=== PATIENT | female | born 1990 | race Caucasian/White ===

== ENCOUNTER 2017-06-26 08:44 | Observation (INO) | payer OTHER ==
[~2017-06-26 08:44] MED LIST: Buffered Lidocaine 0.9% SYRIN* 5 ML/SYR SYRINGE INTRADERM ONE; Famotidine IV* 10 MG/ML 2 ML (20 mg) IV ONE; Metoclopramide TAB* 10 MG ONE; Metoclopramide TAB* 10 MG PO ONE; ceFAZolin 2 GM PREMIX (*) 2 GM/50 ML BAG IVPB ONE
[2017-06-26] MEDS ORDERED: Buffered Lidocaine 0.9% SYRIN* 5 ML/SYR SYRINGE ONE (08:45)
[2017-06-26] MEDS ORDERED: Famotidine IV* 10 MG/ML 2 ML (20 mg) ONE (08:47)
[2017-06-26] MEDS ORDERED: Dexamethasone IV* 4 MG/ML 1 ML (4 MG) ONE (10:18)
[2017-06-26] MEDS ORDERED: KETAMINE HCL* 50 MG/ML 10 ML VIAL ONE (10:18)
[2017-06-26] MEDS ORDERED: Midazolam* 1 MG/ML 10 ML VIAL (10 MG) ONE (10:18)
[2017-06-26] MEDS ORDERED: fentaNYL* 50 MCG/ML 5 ML VIAL (250 MCG VIAL) ONE (10:18)
[2017-06-26] MEDS ORDERED: Ondansetron INJ* 2 MG/ML VIAL ONE (10:18)
[2017-06-26] MEDS ORDERED: Lidocaine 2% PF * 5 ML VIAL ONE (10:18)
[2017-06-26] MEDS ORDERED: Cisatracurium* 2 MG/ML MDV 5 ML ONE (10:18)
[2017-06-26] MEDS ORDERED: Propofol* 10 MG/ML 20 ML BTL IV PUSH ONE (10:18)
[2017-06-26] MEDS ORDERED: Thrombin 5,000 UNITS* 1 APPLIC KIT - topical use - TOPICAL ONE (10:25)
[2017-06-26] MEDS ORDERED: Bacitracin IV* 50,000 UNITS INJ ONE (10:25)
[2017-06-26] MEDS ORDERED: Lidocaine 1% MPF wEPI 200,000* 30 ML SDV ONE (10:25)
[2017-06-26] MEDS ORDERED: Gelfoam Sponge SIZE 100* SPONGE ONE (11:43)
[2017-06-26] MEDS ORDERED: Ondansetron INJ* 2 MG/ML VIAL IV PRN (12:54)
[2017-06-26] MEDS ORDERED: oxyCODONE/Acetamin 5/325 MG* TAB PO PRN (12:54)
[2017-06-26] MEDS ORDERED: HYDROmorphone INJ* 1 MG/ML CARPUJECT SYRINGE IV PRN (12:54)
[2017-06-26] MEDS ORDERED: fentaNYL* 50 MCG/ML 2 ML VIAL (100 MCG VIAL) IV PRN (12:54)
[2017-06-26] MEDS ORDERED: Magnesium Hydroxide LIQ* 30 ML UDC PO PRN (14:22)
[2017-06-26] MEDS ORDERED: Acetaminophen TAB* 325 MG PO PRN (14:22)
[2017-06-26] MEDS ORDERED: oxyCODONE/Acetamin 5/325 MG* TAB ONE (14:59)
--- NOTE | 2017-06-26 15:03 | RAD ---
INDICATION: L4-L5 lumbar discectomy COMPARISON: None FINDINGS: 20 seconds of fluoroscopy were provided for the neurosurgical department. Fluoroscopic spot imaging of the lumbar spine were obtained for operative control. CPT II Codes: 6045F (fluoro time doc)
[2017-06-26] MEDS ORDERED: fentaNYL* 50 MCG/ML 2 ML VIAL (100 MCG VIAL) ONE (15:23)
[2017-06-26] MEDS: HYDROcodone/ACETAMIN 5-325 MG* 1 TAB PO PRN (20:39)
[2017-06-26] MEDS: Ondansetron INJ* 2 MG/ML VIAL IV PRN (22:45)
--- NOTE | 2017-06-27 07:35 | OP ---
DATE OF OPERATION: 06/26/17 - ROOM #335 DATE OF : 89 SURGEON: Aislinn Leon MD. PRINTING PLATE CLERK: ANDRAE Aragon. ANESTHESIOLOGIST: Sundar Pablo MD ANESTHESIA: General. PRE-OP DIAGNOSIS: Right L4-5 herniated nucleus pulposus and footdrop. POST-OP DIAGNOSIS: Right L4-5 herniated nucleus pulposus and footdrop. OPERATIVE PROCEDURE: The patient underwent right L4-5 microdiskectomy. ESTIMATED BLOOD LOSS: 21 cc. COMPLICATIONS: None. SUMMARY: The patient is a very pleasant 27-year-old female with complaints of back pain radiating down the right lower extremity. The patient was found to have weakness with right foot dorsiflexion and MRI findings consistent with right side L4-5 herniated nucleus pulposus. After failing conservative treatment, the patient was offered the option of surgical intervention in the form of right L4-5 microdiskectomy. After explaining to the patient and her mother regarding expectations in addition to possible complications of the procedure, complications to include, but not limited to bleeding; infection; risk of damage to adjacent structures; paralysis; ; need for additional procedures, anesthesia risks; stroke; blindness; instability; cancer; spinal fluid leak; bladder or bowel injury; need for additional procedure in the future ; recurrence of disk herniation; scar tissue, the patient and her mother were agreeable to proceed with surgery. Informed consent was obtained. The patient and her mother understood that her condition may not improve and in fact may get worse after the surgery and she may need some additional procedure in the future. They also agreed and understood that the operative plan may be modified according to intraoperative findings and conditions. They understood that the patient may require additional procedure in the future if she develops instability she may require an arthrodesis in the future. DESCRIPTION OF PROCEDURE: The patient was brought to the operating room and was placed under general anesthesia by the anesthesia team. She was carefully positioned prone on the Gui frame on the Pedro table and all bony prominences were meticulously padded. Her skin was prepped and draped in the standard fashion. After appropriate surgical pause and patient identification, a small right paramedian incision over the disk space of L4-5 was performed with a #10 surgical blade after infiltrating the skin with local anesthetic. The appropriate surgical level was identified with intraoperative fluoroscopic imaging. Incision was carried down to the fascia with Bovie cautery and the dorsal fascia was then divided. Over a series of tubular dilators, the tubular METRx retractor system was introduced and the operative microscope was brought into the field. The right lamina at L4 was exposed with the use of Bovie cautery and fluoroscopic image confirmed the appropriate surgical level. A high speed drill and Kerrison punch was used to perform a right hemilaminotomy. It was extended slightly on the left side. The ligamentum flavum was carefully resected with the use of Kerrison punches and the thecal sac and L5 nerve root were readily identified. The nerve root was gently retracted medially with the help of nerve root retractor and large bulging disc protrusion under the posterior ligament was identified. A #15 surgical blade was used to incise the posterior ligament and annulus fibrosus and further diskectomy was performed with the use of a pituitary rongeur and curettes. Several disk fragments were carefully removed. At the end of the diskectomy, the thecal sac as well as exiting nerve root was found to be free of any pressure phenomena. After meticulous inspection of the wound and copious irrigation, meticulous hemostasis was confirmed and the tubular dilator was gently removed. Meticulous hemostasis was performed and the wound was closed by layers with 0 interrupted Vicryl sutures to reapproximate the dorsal fascia while the subcutaneous tissue was approximated with interrupted 2-0 Vicryl sutures and 4-0 Monocryl suture was used to approximate the skin in a subcuticular layer. The wound was then covered with Steri-Strips and sterile sponges. At the end of the procedure, all counts were reported to be correct. The patient remained hemodynamically stable throughout the case. She was then carefully turned supine, was extubated and was transferred to Recovery in excellent condition. I was present and scrubbed for the entirety of the case. Pierre Leon MD [id number]/[facility] #: [id number] [facility] HOSPITALLizett
[2017-06-27] MEDS ORDERED: Azelastine/Fluticasone NAS(NF) BTL BOTH NARES SCH (09:00)
[2017-06-27] MEDS ORDERED: Dextroamphetamine (NF) TAB 5 MG TAB PO SCH (09:00)
[2017-06-27] MEDS: Ondansetron INJ* 2 MG/ML VIAL IV PRN (09:17)
[2017-06-27] MEDS: HYDROcodone/ACETAMIN 5-325 MG* 1 TAB PO PRN ×2 (09:17→13:12)
[2017-06-27 11:58] VITALS: BP 102/58
--- NOTE | 2017-06-27 12:30 | PN ---
Progress Note - Progress Note Date of Service: 06/27/17 SOAP: Subjective: []No events ON. Rt LE pain resolved, weakness and sensation improved. Tolerates po well, ambulates, voids. Wants to go home. Objective: []VVS, Afebrile. Wound s,c,d AAOx3 CINTHIA, CN II-XII grossly intact Motor 5/5 all extremities, except rt foot DF, EHL: 4+/5 Sensory grossly intact to light touch, except mildly decreased rt L4,5 ( which is improved c/w preop) Assessment: []27yof POD#1 Rt L4-5 MIS discectomy Plan: []Encourage ambulation. DC home today. Full instructions were given. Pierre Leon MD
--- NOTE | 2017-06-28 21:01 | DS ---
DISCHARGE SUMMARY: DATE OF ADMISSION: 06/26/17 DATE OF DISCHARGE: 06/27/17 PROCEDURE: The patient underwent a right L4-5 discectomy. COMPLICATIONS: None. DISPOSITION: Home. SUMMARY: The patient is a very pleasant 27-year-old female with complaints of back pain at the end o f the right lower extremity with weakness of the right lower extremity and right footdrop. MRI revea led a large right L4-5 disc herniation. After failing conservative treatment, the patient was offered the option of subsequent intervention in the form of right L4-5 discectomy. After all expectations, limitations and possible complications of the procedure has been explained to the patient and her fa rajesh, the patient was agreeable to proceed with surgery. Informed consent was obtained. The patient underwent the above procedure on 06/26/17. She tolerated the procedure well and was able to be extu bated and was transferred to the floor in excellent condition. She improved clinically. Her right l ower extremity pain completely resolved as well as her weakness and numbness significantly improved. She was able to ambulate, take well p.o. and her pain was well controlled with p.o. medications. Raghavendra bryant was felt ready to be discharged on 06/27/17 and she was discharged home with full instructions. [id number]/[facility] #: [id number]
== END 2017-06-27 14:00 | disposition home or self-care (01) ==
LOC: OR 08:44 → SSU 14:22
PROVIDERS: ADMIT Neurological Surgery; ATTEND Neurological Surgery
DX: M51.26 Other intervertebral disc displacement, lumbar region (principal); M21.371 Foot drop, right foot; K21.9 Gastro-esophageal reflux disease without esophagitis
CPT/HCPCS: 76001; 81025; 96374; A9270-GY; G0378; J0690; J1100; J2001; J2250; J2405; J2704; J3010

== ENCOUNTER 2022-12-23 05:32 | Inpatient (IN) ==
[2022-12-23] MEDS ORDERED: Lactated Ringers 1000 ml BAG 1,000 ML IV ONE ×2 (06:10→09:08)
[2022-12-23] MEDS ORDERED: Penicillin G Potassium IV 5,000,000 UNITS in NS 0.9% 100 ml BAG 100 ML IVPB ONE (06:10)
[2022-12-23] MEDS ORDERED: Buffered Lidocaine 1% SYRIN 1 ml INTRADERM ONE (06:10)
[2022-12-23 07:00] LABS: ABS Eosinophils 0.1 10^3/uL (0.0-0.5); ABS Lymphocytes 2.3 10^3/uL (1.0-4.8); ABS Monocytes 1.1 10^3/uL (0.0-0.9); ABS Neutrophils 9.3 10^3/uL (1.5-7.6); Eosinophil % 0.9 %; Hematocrit 36.5 % (35-45); Hemoglobin 12.5 g/dL (11.5-14.3); Lymphocyte % 18.2 %; Mean Corpuscular Hemoglobin 30.3 pg (27-33); Mean Corpuscular Hgb Conc 34.2 g/dL (31-36); Mean Corpuscular Volume 88.8 fL (80-97); Mean Platelet Volume 7.7 fL (7.5-11.2); Platelet Count 260 10^3/uL (150-450); Red Blood Count 4.12 10^6/uL (3.63-4.92); Red Cell Distribution Width 12.9 % (12-17); White Blood Count 12.9 10^3/uL (3.8-11.8)
[2022-12-23] MEDS ORDERED: Lactated Ringers 1000 ml BAG 1,000 ML IV SCH ×4 (07:00→15:00)
[2022-12-23] MEDS ORDERED: OBEPIDURAL (200 ML) 200 ML EPIDURAL ONE (08:27)
[2022-12-23] MEDS ORDERED: Lidocaine 1.5% EPI 1:200,000 30 ML SDV ONE (08:27)
[2022-12-23] MEDS ORDERED: Sodium Citrate/Citric Acid LIQ 15 ML UDC PO PRN (09:08)
[2022-12-23] MEDS ORDERED: Lactated Ringers 1000 ml BAG 500 ML IV PRN ×2 (09:08)
[2022-12-23] MEDS ORDERED: Phenylephrine 40 mcg/mL 10mL (400mcg) SYRINGE IV PUSH PRN ×2 (09:08)
[2022-12-23] MEDS ORDERED: OBEPIDURAL (200 ML) 200 ML EPIDURAL SCH (10:00)
[2022-12-23 10:22] LABS: Urine Appearance Clear; Urine Bilirubin Negative (Negative); Urine Blood Negative (Negative); Urine Color Yellow; Urine Glucose 1+(50 mg/dL) (Negative); Urine Ketones Negative (Negative); Urine Nitrite Negative (Negative); Urine Protein Negative (Negative); Urine Specific Gravity 1.027 (1.002-1.030); Urine Urobilinogen Negative (Negative)
[2022-12-23 10:51] LABS: Urine Benzodiazepine Screen None Detected (None Detect); Urine Cannabinoids Screen None Detected (None Detect); Urine Opiates Screen None Detected (None Detect)
[2022-12-23] MEDS ORDERED: Penicillin G Potassium IV 3,000,000 UNITS in NS 0.9% 100 ml BAG 100 ML IVPB SCH (11:30)
[2022-12-23] MEDS ORDERED: Oxytocin in LR 20,000 MILLI.UNIT/1,000 ML BAG IV ONE (13:07)
[2022-12-23] MEDS ORDERED: Witch Hazel PAD JAR TOPICAL PRN (14:16)
[2022-12-23] MEDS ORDERED: Glycerin ADULT 2.4 gm SUPP PR PRN (14:16)
[2022-12-23] MEDS ORDERED: Dibucaine 1% OINT 28.35 GM TUBE PR PRN (14:16)
[2022-12-23] MEDS ORDERED: Oxytocin in LR 20,000 MILLI.UNIT/1,000 ML BAG IV SCH (14:30)
[2022-12-23] MEDS ORDERED: Lidocaine 1% VIAL 10 MG/ML VIAL 30 ML ONE (17:24)
[2022-12-24 07:15] LABS: ABS Eosinophils 0.1 10^3/uL (0.0-0.5); ABS Lymphocytes 1.9 10^3/uL (1.0-4.8); ABS Neutrophils 8.8 10^3/uL (1.5-7.6); Eosinophil % 0.7 %; Lymphocyte % 15.9 %; Mean Corpuscular Hemoglobin 30.6 pg (27-33); Mean Corpuscular Hgb Conc 34.5 g/dL (31-36); Mean Corpuscular Volume 88.6 fL (80-97); Mean Platelet Volume 7.2 fL (7.5-11.2); Platelet Count 190 10^3/uL (150-450); Red Blood Count 3.61 10^6/uL (3.63-4.92); Red Cell Distribution Width 13.2 % (12-17); White Blood Count 11.9 10^3/uL (3.8-11.8)
[2022-12-25 20:19] VITALS: BP 120/77
== END 2022-12-25 22:31 | disposition home or self-care (01) | DRG 560 ==
LOC: MCHOBOUT 05:32 → MCHOB 06:21
PROVIDERS: ADMIT Midwife; ATTEND Advanced Practice Midwife